=== PATIENT | female | born 1950 | race Caucasian/White ===

== ENCOUNTER → 2023-05-12 10:12 | Outpatient (CLI) | payer OTHER, MEDICAID, SELFPAY ==
--- NOTE | 2023-05-12 | DI.NM.S_ITS ---
PROCEDURE: NM PJ PERF SPECT REST & STR Rest and exercise myocardial perfusion SPECT with gated imaging and ejection fraction RADIOPHARMACEUTICAL: 25.2 mCi Tc-99m sestamibi IV at rest and 25.0 mCi Tc-99m sestamibi IV at peak exercise. A two day-protocol was performed. INDICATIONS: Chest Pressure TECHNIQUE: Radiopharmaceutical was injected at peak stress test, and also at rest. SPECT images were obtained. SPECT myocardial perfusion images were displayed in short axis, horizontal long axis, and vertical long axis views. Gated images were reviewed using Solapa4 software. COMPARISON: None. CARDIAC STRESS: A standard Darrian treadmill exercise tolerance test was performed by the patient under the supervision of an attending staff. The patient exercised for 4 minutes and 26 seconds; functional aerobic impairment (AMANDA) is +26%. Hemodynamic data: There is normal blood pressure and heart rate response to exercise stress. Patient achieved 101% of maximum predicted heart rate at peak exercise. Symptoms: Patient denied chest pain during exercise. EKG: No diagnostic EKG changes of ischemia; no ectopy. FINDINGS: Raw data: There is good myocardial labeling by radiotracer. No significant motion artifacts. Riqa-mh-fmttg ratio is 0.37 (normal is less than 0.38 for sestamibi tracer, and less than 0.50 for thallium tracer). Left ventricle function: Gated images demonstrate normal left ventricle wall thickening. No segmental wall motion abnormality. No transient ischemic dilation; TID is 1.08 (normal less than 1.3). The left ventricle resting end-diastolic volume is 55 mL. Left ventricle stress ejection fraction is 85%; normal values are above 45%. Myocardial perfusion: No perfusion defects on stress prone imaging. IMPRESSION: Low risk, normal treadmill nuclear stress test. 1) No perfusion evidence of ischemia or infarction. 2) Normal left ventricular size, wall motion, and systolic function (EF post stress 85%). 3) No ST changes during exercise or recovery. 4) No angina during the study. 5) Mildly reduced exercise tolerance (6.8 METS, AMANDA +28%). Target heart rate achieved. Appropriate BP response to exercise. 6) No angina during the study. Dictated by: Andre Downs MD on 05/13/2023 at 16:49 Approved by: Andre Downs MD on 05/13/2023 at 16:53
== END ==
PROVIDERS: PCP Internal Medicine; Referring Provider Internal Medicine Cardiovascular Disease; Visit Provider Internal Medicine Cardiovascular Disease
DX: R07.89 Other chest pain (principal)
CPT/HCPCS: 78452; 93017; A9502

== ENCOUNTER 2024-12-12 11:23 | Outpatient (RCR) | payer OTHER, MEDICAID, SELFPAY ==
--- NOTE | 2024-12-12 15:50 | PT.OIE ---
Current Diagnoses Dizziness and giddiness (12/12/24) Syncope and collapse (12/12/24) Visit Care Team Role Provider Type LIANET Virgen Attending Provider Non-Staff Family Provider Primary Care Provider Referring Provider Specialty: Family Practice Address: [address] [place], [address] Email: Physical Therapy Initial Evaluation PT-OP-A Visit Information Start: 12/10/24 16:26 Freq: Status: Active Protocol: Document 12/12/24 11:34 MB (Rec: 12/12/24 12:18 MB [id number]) Out-Patient Physical Therapy Visit Information Visit Information Visit Type Initial Evaluation Visit Note Progress note by 01/09/25 Visit Start Time 11:34 Visit Stop Time 12:14 Visit Number 1 Number of PICK UP WORKER Visits 0 Evaluation Information Evaluation Date 12/12/24 PT-OP-B Current Condition Start: 12/10/24 16:26 Freq: Status: Active Protocol: Document 12/12/24 11:34 MB (Rec: 12/12/24 12:18 MB [id number]) Current Condition History of Current Condition Onset Date 1.5 weeks ago Current Complaints Pt is dizzy and unstable History of Current Condition Pt reports that she had a similar event one year ago. She just spent a week in for a work-up. She states that she went to because her provider saw that there was something wrong with an artery in her neck. performed a CT scan and found the same blockage. They stated that the blockage could have been there at and should not cause symptoms. On d/c summary from , pt was dx with persistent postural perception dizziness. Pt reports that she could get in quickest in [place] for PT and she came up from [place]. She d/cd from last Tuesday and they wanted to send her to SNF and she refused. Pt lives alone in [place] and she has two neighbors who are providing support with feeding her dogs, errands and whatever is needed. She is supposed to get MOW started, she pulled up rugs, she used a walker for two days and is now using QC. She is exhausted and sleeping a lot. Pt states that this entire event is a repeat from last year and she got slowly better . She is more dizzy this time. It started the same last year when she passed out. Meclizine was not helpful. She had vertigo in the past and this is not that. Pt sort of feels like she is not getting enough blood to her brain. She saw an ENT. She has a history of pacemaker , a wire got loose and punctured in her heart and lung between 1-2 years ago. She had a lot of left chest pain at that time. She was re- treated by surgeon. Two weeks later, she had intense episcopalian pain and spotty issues on her legs. Pt's mother has history of temporal arteritis. She was treated as if she had temporal arteritis at the hospital and she was put on prednisone and this affected the healing of her chest wound after surgery. She was still on prednisone when she had her first dizziness event and she ended up at [facility]. The prednisone was reduced and she eventually weaned off. Pt passed out mid afternoon. Pt is not drinking caffeine or alcohol. She is making a point of drinking water. Her BP was almost 200 when ENTs checked it. Pt denies: numbness and tingling, performance of sit- ups, reaching overhead, anemia , hearing changes, sinus and allergy issues, trouble swallowing, B12 deficiency, eye pressure, tinnitus, chiropractor treatment, jaw problems. Pt reports: vision changes, slightly blurry, left ear pressure intermittent, remote history of concussion, weakness, episcopalian headache resolved. Treatment Goals Patient/Caregiver Goals Improve stability and vestibular system. PT-OP-C Subjective Start: 12/10/24 16:26 Freq: Status: Active Protocol: Document 12/12/24 11:34 MB (Rec: 12/12/24 13:30 MB [id number]) OP-PT Subjective Patient Comments Patient Comments See history of current condition Patient Questionnaires Dizziness Handicap Inventory DHI Score 52 DHI Functional Impairment 40 to 59% Impaired (Score 40- 59) PT-OP-D Balance Start: 12/10/24 16:26 Freq: Status: Active Protocol: Document 12/12/24 11:34 MB (Rec: 12/12/24 13:50 MB [id number]) OP-PT Balance Assessment Standing Balance Static Standing Balance Ability Fair Dynamic Standing Balance Ability Fair Device Used QC Standing Balance Comments Pt tends to reach for plinth with dynamic standing, initiating step Freeman Fall Scale Copyright Permission PT-OP-G Mobility & Gait Start: 12/10/24 16:26 Freq: Status: Active Protocol: Document 12/12/24 11:34 MB (Rec: 12/12/24 13:50 MB [id number]) OP Gait Assessment Comments Gait Comments Slow gait with QC and pt requires superv and assistance to carry purse, sweater and papers, evidence of imbalance PT-OP-H Neuro Start: 12/10/24 16:26 Freq: Status: Active Protocol: Document 12/12/24 11:34 MB (Rec: 12/12/24 12:18 MB [id number]) Vital Signs Comments Vital Signs Comments Orthostatic assessment: BP and HR LUE: supine 169/81, 60; standing 164/78, 84; standing 1' 155/73, 74; standing 2' 161 /73, 72. PT-OP-T Assessment and Plan Start: 12/10/24 16:26 Freq: Status: Active Protocol: Document 12/12/24 11:34 MB (Rec: 12/12/24 13:50 MB [id number]) Physical Therapy Assessment Rehab Potential Rehabilitation Potential Fair Evaluation Complexity Number of Personal Factors/Comorbidities 1-2 Number of Body Systems Impaired 3 Clinical Presentation at Evaluation Evolving Impairments Impairments Activity Tolerance,Balance, Coordination,Functional Activities,Functional Mobility ,Gait,Posture,Strength, Transfers,Vestibular Other Concerns Fall Risk Yes Goals 3 Impairment Lack of HEP Mat Puncher Goal (LTG) Pt will perform progressive HEP with I including VOR, postural, balance and pre-gait exercises to improve safety and I. LTG Duration 8 weeks 2 Impairment Evidence of imbalance Detention Goal (LTG) Pt will perform WNLs on Thornton and Tinetti balance tests to decrease fall risk. LTG Duration 8 weeks 1 Impairment DHI reflects 52% impairment Mat Puncher Goal (LTG) Pt will present with DHI reflecting no more than 25% impairment to improve quality of life and symptomology. LTG Duration 8 weeks Assessment Summary Assessment Pt is a 74 y/o female presenting with complicated recent and remote dizziness history. This PT does not have access to any records from [facility], [facility] or . Pt reports d/c from last December 07. Referral from [facility] does not have any information except referral order. 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 Pt's subjective history takes up most of evaluation time. Pt reports history of two pre-syncopal episodes that started a cascade of dizziness both one year ago and then a couple of weeks ago . Orthostatics today are negative and she presents with imbalance with standing and gait with QC. Pt lives in [place] and it takes about two hours for her to get up to this clinic for PT. This is a hardship in making it to appointments, especially since pt takes public transportation. Discussed many options to make this easier and pt verbalizes she wishes to keep some appointments at this clinic and she will give a 24 hour notice if she needs to cancel. She will benefit from OPPT for further vestibular, postural, balance and cervical assessment and treatment. Physical Therapy Plan Frequency and Duration Frequency of Treatment 1-2x/wk Duration of treatment (weeks) 8 Plan of Care Start Date 12/12/24 Plan of Care End Date 02/11/25 Therapeutic Interventions Therapeutic Interventions Balance Training,Canalithic Repositioning,Coordination Training,Gait Training,Home Exercise Program,Joint Mobilizations,Manual Therapy, Neuromuscular Re-education, Patient/Caregiver Education, Self-Care/Home Management,Soft Tissue Mobilization,Taping, Therapeutic Activities, Therapeutic Exercises, Vestibular Rehabilitation Modalities Cold Pack/Ice Massage,Electric Stimulation,Hot Packs, Ultrasound Next Visit Focus/Plan Next Note Type Treatment Note Next Visit Plan DVA, further vestibular, cervical, MMT and balance testing
--- NOTE | 2024-12-13 08:08 | PT-OP ANOTE ---
PT calls Oneil Das office at [facility] and leaves message for office to send last office visit note and any notes that they have from [facility] visit. PT leaves [facility] fax number from [facility].
--- NOTE | 2024-12-16 08:21 | PT.OPDS ---
Current Diagnoses Dizziness and giddiness (12/12/24) Syncope and collapse (12/12/24) Visit Care Team Role Provider Type LIANET Virgen Attending Provider Non-Staff Family Provider Primary Care Provider Referring Provider Specialty: Family Practice Address: [facility] [place], [address] Email: Visit Number Visit Number 1 Discharge Summary PT-OP-B Current Condition Start: 12/10/24 16:26 Freq: Status: Active Protocol: Document 12/12/24 11:34 MB (Rec: 12/12/24 12:18 MB [id number]) Current Condition History of Current Condition Onset Date 1.5 weeks ago Current Complaints Pt is dizzy and unstable History of Current Condition Pt reports that she had a similar event one year ago. She just spent a week in for a work-up. She states that she went to because her provider saw that there was something wrong with an artery in her neck. performed a CT scan and found the same blockage. They stated that the blockage could have been there at and should not cause symptoms. On d/c summary from , pt was dx with persistent postural perception dizziness. Pt reports that she could get in quickest in [place] for PT and she came up from [place]. She d/cd from last Tuesday and they wanted to send her to SNF and she refused. Pt lives alone in [place] and she has two neighbors who are providing support with feeding her dogs, errands and whatever is needed. She is supposed to get MOW started, she pulled up rugs, she used a walker for two days and is now using QC. She is exhausted and sleeping a lot. Pt states that this entire event is a repeat from last year and she got slowly better . She is more dizzy this time. It started the same last year when she passed out. Meclizine was not helpful. She had vertigo in the past and this is not that. Pt sort of feels like she is not getting enough blood to her brain. She saw an ENT. She has a history of pacemaker , a wire got loose and punctured in her heart and lung between 1-2 years ago. She had a lot of left chest pain at that time. She was re- treated by surgeon. Two weeks later, she had intense caodaism pain and spotty issues on her legs. Pt's mother has history of temporal arteritis. She was treated as if she had temporal arteritis at the hospital and she was put on prednisone and this affected the healing of her chest wound after surgery. She was still on prednisone when she had her first dizziness event and she ended up at [place]. The prednisone was reduced and she eventually weaned off. Pt passed out mid afternoon. Pt is not drinking caffeine or alcohol. She is making a point of drinking water. Her BP was almost 200 when ENTs checked it. Pt denies: numbness and tingling, performance of sit- ups, reaching overhead, anemia , hearing changes, sinus and allergy issues, trouble swallowing, B12 deficiency, eye pressure, tinnitus, chiropractor treatment, jaw problems. Pt reports: vision changes, slightly blurry, left ear pressure intermittent, remote history of concussion, weakness, caodaism headache resolved. Treatment Goals Patient/Caregiver Goals Improve stability and vestibular system. PT-OP-C Subjective Start: 12/10/24 16:26 Freq: Status: Active Protocol: Document 12/12/24 11:34 MB (Rec: 12/12/24 13:30 MB [id number]) OP-PT Subjective Patient Comments Patient Comments See history of current condition Patient Questionnaires Dizziness Handicap Inventory DHI Score 52 DHI Functional Impairment 40 to 59% Impaired (Score 40- 59) PT-OP-D Balance Start: 12/10/24 16:26 Freq: Status: Active Protocol: Document 12/12/24 11:34 MB (Rec: 12/12/24 13:50 MB [id number]) OP-PT Balance Assessment Standing Balance Static Standing Balance Ability Fair Dynamic Standing Balance Ability Fair Device Used QC Standing Balance Comments Pt tends to reach for plinth with dynamic standing, initiating step Fremean Fall Scale Copyright Permission PT-OP-G Mobility & Gait Start: 12/10/24 16:26 Freq: Status: Active Protocol: Document 12/12/24 11:34 MB (Rec: 12/12/24 13:50 MB [id number]) OP Gait Assessment Comments Gait Comments Slow gait with QC and pt requires superv and assistance to carry purse, sweater and papers, evidence of imbalance PT-OP-H Neuro Start: 12/10/24 16:26 Freq: Status: Active Protocol: Document 12/12/24 11:34 MB (Rec: 12/12/24 12:18 MB [id number]) Vital Signs Comments Vital Signs Comments Orthostatic assessment: BP and HR LUE: supine 169/81, 60; standing 164/78, 84; standing 1' 155/73, 74; standing 2' 161 /73, 72. PT-OP-T Assessment and Plan Start: 12/10/24 16:26 Freq: Status: Active Protocol: Document 12/16/24 08:20 MB (Rec: 12/16/24 08:21 MB [id number]) Physical Therapy Assessment Assessment Summary Assessment Pt left message with front office. She was able to find a vestibular PT closer to her home in [place] and canceled all her appointments and asked to d/c. Will d/c PT.
== END 2024-12-17 09:45 | disposition home or self-care (01) ==
LOC: PHYS 11:23
PROVIDERS: Family Provider Nurse Practitioner Primary Care; PCP Nurse Practitioner Primary Care; Referring Provider Nurse Practitioner Primary Care; Visit Provider Nurse Practitioner Primary Care
DX: R55 Syncope and collapse (principal); R42 Dizziness and giddiness
CPT/HCPCS: 97162